=== PATIENT | male | born 1990 | race Two or more races ===

== ENCOUNTER 2019-12-19 00:24 | Emergency (ER) | payer OTHER ==
[~2019-12-19] VITALS: Ht 162.6 cm; Wt 88.0 kg
--- NOTE | 2019-12-19 00:50 | NUR ---
PT AMBULATORY WITH STEADY GAIT. BIBS FOR SI WITH PLAN TO RUN IN TO TRAFFIC, -HI. PLACED IN GOWN, ON MONITOR AND PULSE OX. BELONINGS PLACED IN LOCKER. URINE SAMPLE PROVIDED.
[2019-12-19] MEDS ORDERED: OLANZAPINE 5 MG TABLET PO ONE (01:00)
--- NOTE | 2019-12-19 01:02 | NUR ---
SECURITY CALLED FOR WANDING.
[2019-12-19 01:19] LABS: BASOPHILS % (AUTO) 0.6 % (0.0-2.0); EOSINOPHILS % (AUTO) 0.9 % (0.0-6.0); HEMATOCRIT 43 % (39-51); HEMOGLOBIN 13.6 g/dL (13.5-17.5); LYMPHOCYTES # (AUTO) 1.8 /CMM (0.8-4.8); LYMPHOCYTES % (AUTO) 24.2 % (20.0-44.0); MEAN CORPUSCULAR HGB CONC 32 g/dl (31.0-36.0); MEAN CORPUSCULAR VOLUME 85 fL (80-96); MONOCYTES # (AUTO) 0.4 /CMM (0.1-1.30); MONOCYTES % (AUTO) 5.3 % (2.0-12.0); NEUTROPHILS # (AUTO) 5.2 /CMM (1.8-8.9); PLATELET COUNT (AUTO) 315 /CMM (150-450); RED BLOOD CELL COUNT(AUTO) 5.02 MIL/uL (4.5-6.0); WHITE BLOOD COUNT (AUTO) 7.5 K/uL (4.3-11.0)
--- NOTE | 2019-12-19 01:21 | NUR ---
ARTIST BLACKSMITH AT BEDSIDE FOR LABS
[2019-12-19 01:24] LABS: APPEARANCE,URINE Clear (CLEAR); BILIRUBIN,URINE SMALL (NEGATIVE); BLOOD, URINE Negative Ery/uL (NEGATIVE); COLOR,URINE Yellow (YELLOW); KETONES,URINE Trace (NEGATIVE); LEUKOCYTE ESTERASE ,URINE Negative (NEGATIVE); NITRITE, URINE Negative (NEGATIVE); PH,URINE 5.5 (5.0-8.0); PROTEIN,URINE 100 mg/dl (NEGATIVE); UGLUCOSE Negative (NEGATIVE); UROBILINOGEN,URINE 0.2 EU/dL (0.2)
[2019-12-19 01:29] LABS: CALCIUM, SERUM 8.6 mg/dL (8.5-10.1); CARBON DIOXIDE 23 mmol/L (21-32); CHLORIDE 106 mmol/L (98-107); GLUCOSE 111 mg/dL (74-106); POTASSIUM 3.6 mmol/L (3.5-5.1); SODIUM SERUM 139 mmol/L (136-145); UREA NITROGEN, BLOOD 15 mg/dL (7-18)
[2019-12-19 01:34] LABS: ALANINE AMINOTRANSFERASE 31 U/L (12-78); ALBUMIN 3.6 g/dL (3.4-5.0); ALCOHOL, BLOOD < 3 mg/dL (0-0); ALKALINE PHOSPHATASE 120 U/L (46-116); ASPARTATE AMINOTRANSFERASE 18 U/L (15-37); BILIRUBIN,TOTAL 0.2 mg/dL (0.2-1.0); TOTAL PROTEIN, SERUM 7.3 g/dL (6.4-8.2)
[2019-12-19 01:35] LABS: ACETAMINOPHEN 0 ug/ml (10-30)
[2019-12-19 01:42] LABS: RBC,URINE 0-2 /HPF (0-2)
[2019-12-19 01:43] LABS: BACTERIA,URINE Few /HPF (None Seen); MUCUS,URINE Many /LPF (None Seen); SPERM,URINE Many /HPF (None Seen); SQUAMOUS EPITHELIAL CELL,UR Rare /HPF (None Seen)
[2019-12-19] MEDS ORDERED: OLANZAPINE 5 MG TABLET ONE (01:49)
--- NOTE | 2019-12-19 02:07 | NUR ---
Patient is resting comfortably in bed with eyes closed. Easily aroused. VSS
--- NOTE | 2019-12-19 03:34 | NUR ---
PT STILL C/O SI AT THIS TIME, WITH PLAN TO SLIT WRISTS
--- NOTE | 2019-12-19 05:27 | NUR ---
PER [facility] FROM [facility] INTAKE, NO BEDS AVAILABLE AT THIS TIME
--- NOTE | 2019-12-19 05:55 | NUR ---
PT ASLEEP. PLACED ON MONITOR AND PULSE OX. EASILY AROUSED.
--- NOTE | 2019-12-19 06:40 | NUR ---
PT ACCEPTED TO [facility]. DR. CADENA AND DR. SANCHEZ.
--- NOTE | 2019-12-19 06:40 | NUR ---
Patient is resting comfortably in bed with eyes closed. Easily aroused. VSS
[2019-12-19 06:56] VITALS: BP 117/71
--- NOTE | 2019-12-19 07:12 | NUR ---
CALLED CALL THE CAR REQUESTING S TRANSPORT TO [facility]. AWAITING ETA. #[phone]
--- NOTE | 2019-12-19 08:06 | NUR ---
REPORT TO EMT TX FOR MANUEL
== END 2019-12-19 08:08 ==
LOC: ER 00:31
DX: R45.851 Suicidal ideations (principal)
CPT/HCPCS: 36415; 80048; 80076; 80305; 80307; 80329; 81001; 85025; 87086; 99285; G0480; 81000-TC

== ENCOUNTER 2020-01-14 03:56 | Emergency (ER) | payer OTHER ==
[~2020-01-14] VITALS: Ht 162.6 cm; Wt 88.0 kg
--- NOTE | 2020-01-14 04:08 | NUR ---
FEELING DEPRESSED, DENIES S/I, +H/I "THOUGHTS OF HARMING OTHERS"; PT TO BED 14, COOPERATIVE WITH STAFF. BELONGINGS KEPT IN LOCKER FOR SAFETY, CALLED SECURITY AT THIS TIME FOR WANDING. JOEY ANDREWS NOTED.
--- NOTE | 2020-01-14 04:11 | NUR ---
SEEN BY DR. HAGAN
--- NOTE | 2020-01-14 04:13 | NUR ---
SECURITY AT BEDSIDE FOR WANDING
--- NOTE | 2020-01-14 04:40 | NUR ---
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
--- NOTE | 2020-01-14 04:50 | NUR ---
PT UNABLE TO PROVIDE URINE SAMPLE AT THIS TIME. MD FRANCOIS
[2020-01-14 05:04] LABS: BASOPHILS % (AUTO) 0.7 % (0.0-2.0); HEMATOCRIT 43 % (39-51); HEMOGLOBIN 13.8 g/dL (13.5-17.5); LYMPHOCYTES # (AUTO) 2.1 /CMM (0.8-4.8); MEAN CORPUSCULAR HGB CONC 32 g/dl (31.0-36.0); MEAN CORPUSCULAR VOLUME 84 fL (80-96); MONOCYTES # (AUTO) 0.6 /CMM (0.1-1.30); MONOCYTES % (AUTO) 8.6 % (2.0-12.0); NEUTROPHILS % (AUTO) 57.7 % (43.0-81.0); PLATELET COUNT (AUTO) 251 /CMM (150-450); WHITE BLOOD COUNT (AUTO) 6.9 K/uL (4.3-11.0)
[2020-01-14 05:13] LABS: ALANINE AMINOTRANSFERASE 26 U/L (12-78); ALBUMIN 3.5 g/dL (3.4-5.0); ALKALINE PHOSPHATASE 92 U/L (46-116); ASPARTATE AMINOTRANSFERASE 23 U/L (15-37); BILIRUBIN,DIRECT 0.1 mg/dL (0.0-0.2); BILIRUBIN,TOTAL 0.3 mg/dL (0.2-1.0); CALCIUM, SERUM 8.3 mg/dL (8.5-10.1); CARBON DIOXIDE 26 mmol/L (21-32); CHLORIDE 102 mmol/L (98-107); CREATININE 1.1 mg/dL (0.6-1.3); GLUCOSE 104 mg/dL (74-106); POTASSIUM 3.6 mmol/L (3.5-5.1); SODIUM SERUM 140 mmol/L (136-145); TOTAL PROTEIN, SERUM 7.1 g/dL (6.4-8.2); UREA NITROGEN, BLOOD 14 mg/dL (7-18)
[2020-01-14 05:14] LABS: ACETAMINOPHEN 0 ug/ml (10-30); ALCOHOL, BLOOD < 3 mg/dL (0-0); SALICYLATE 1.4 mg/dL (2.8-20.0)
--- NOTE | 2020-01-14 05:20 | NUR ---
PT IS STILL UNABLE TO PROVIDE URINE SAMPLE
--- NOTE | 2020-01-14 05:20 | NUR ---
PT STILL UNABLE TO GIVE URINE SAMPLE AT THIS TIME. MD FRANCOIS
--- NOTE | 2020-01-14 06:43 | NUR ---
URINE SAMPLE COLLECTED AND SENT TO THE LAB.
[2020-01-14 07:44] LABS: APPEARANCE,URINE CLEAR (CLEAR); BILIRUBIN,URINE NEGATIVE (NEGATIVE); BLOOD, URINE NEGATIVE Ery/uL (NEGATIVE); COLOR,URINE YELLOW (YELLOW); KETONES,URINE NEGATIVE (NEGATIVE); LEUKOCYTE ESTERASE ,URINE NEGATIVE (NEGATIVE); NITRITE, URINE NEGATIVE (NEGATIVE); PROTEIN,URINE NEGATIVE (NEGATIVE); UGLUCOSE NEGATIVE (NEGATIVE)
--- NOTE | 2020-01-14 08:06 | NUR ---
PATIENT IN BED ASLEEP, EASILY AROUSABLE BY VOICE, HOOKED TO MONITOR, SITTER AT BEDSIDE, WILL CONTINUE TO MONITOR ACCORDINGLY
--- NOTE | 2020-01-14 09:12 | NUR ---
BREAKFAST TRAY PROVIDED, TOLERATED PO WELL
--- NOTE | 2020-01-14 10:22 | NUR ---
OMA RN AT BEDSIDE FOR PSYCH EVAL.
--- NOTE | 2020-01-14 13:28 | NUR ---
LUNCH TRAY PROVIDED.
--- NOTE | 2020-01-14 15:32 | NUR ---
PT SLEEPING IN BED. EASILY AROUSABLE. STABLE VITALS. WILL CONTINUE TO MONITOR.
--- NOTE | 2020-01-14 15:50 | NUR ---
[facility]ACESHEET AND CLINIC[facility] FAXED TO [facility].
--- NOTE | 2020-01-14 16:56 | NUR ---
PER [facility] INTAKE. PT WILL BE ADMITTED TO [facility] AFTER 190. REPORT TO [phone] EXT [phone]
--- NOTE | 2020-01-14 17:14 | NUR ---
called [id number] res# [id number] eta [id number]
--- NOTE | 2020-01-14 18:26 | NUR ---
PT SLEEPING IN BED. EASILY AROUSABLE BY VOICE. STABLE VITALS. WILL CONTINUE TO MONITOR.
--- NOTE | 2020-01-14 18:26 | NUR ---
SITTER AT BEDSIDE
--- NOTE | 2020-01-14 19:00 | NUR ---
dinner tray provided, tolerating po well.
--- NOTE | 2020-01-14 19:23 | NUR ---
ATTEMPTED TO CALL FOR REPORT, REQUESTED TO CALL BACK
--- NOTE | 2020-01-14 19:38 | NUR ---
REPORT GIVEN TO CORRIE GRAYSON AT [facility] FOR [facility].
--- NOTE | 2020-01-14 19:40 | NUR ---
REPORT GIVEN TO TRANSPORT TEAM FOR [facility]. AND TRANFERRING RESPONSIBILITIES.
[2020-01-14 20:04] VITALS: BP 134/79
== END 2020-01-14 20:05 | disposition short-term general hospital (02) ==
LOC: ER 04:00
DX: R45.850 Homicidal ideations (principal); F32.9 Major depressive disorder, single episode, unspecified; F41.9 Anxiety disorder, unspecified; F20.9 Schizophrenia, unspecified
CPT/HCPCS: 36415; 80048; 80076; 80305; 80307; 80329; 81001; 85025; 99285; G0480; 81000-TC

== ENCOUNTER 2024-01-26 06:10 | Emergency (ER) | payer MEDICAID ==
[~2024-01-26] VITALS: Ht 167.6 cm; Wt 81.6 kg
[2024-01-26 07:21] LABS: BASOPHILS % (AUTO) 0.4 % (0.0-2.0); EOSINOPHILS # (AUTO) 0.1 K/uL (0.0-0.7); EOSINOPHILS % (AUTO) 1.9 % (0.0-6.0); HEMATOCRIT 41 % (39-51); HEMOGLOBIN 13.5 g/dL (13.5-17.5); LYMPHOCYTES # (AUTO) 1.9 K/uL (0.8-4.8); LYMPHOCYTES % (AUTO) 26.2 % (20.0-44.0); MEAN CORPUSCULAR HEMOGLOBIN 28 PG (26.0-33.0); MEAN CORPUSCULAR HGB CONC 33 g/dl (31.0-36.0); MEAN CORPUSCULAR VOLUME 83 fL (80-96); MONOCYTES # (AUTO) 0.5 K/uL (0.1-1.30); MONOCYTES % (AUTO) 6.9 % (2.0-12.0); NEUTROPHILS # (AUTO) 4.6 K/uL (1.8-8.9); NEUTROPHILS % (AUTO) 64.6 % (43.0-81.0); PLATELET COUNT (AUTO) 308 K/uL (150-450); RED BLOOD CELL COUNT(AUTO) 4.91 MIL/uL (4.5-6.0); RED CELL DISTRIBUTION WIDTH 13.9 % (11.5-15.0); WHITE BLOOD COUNT (AUTO) 7.1 K/uL (4.3-11.0)
[2024-01-26 07:43] LABS: ALANINE AMINOTRANSFERASE 35 U/L (12-78); ALBUMIN 3.4 g/dL (3.4-5.0); ALKALINE PHOSPHATASE 118 U/L (46-116); ASPARTATE AMINOTRANSFERASE 22 U/L (15-37); BILIRUBIN,DIRECT 0.1 mg/dL (0.0-0.2); BILIRUBIN,TOTAL 0.4 mg/dL (0.2-1.0); CALCIUM, SERUM 8.9 mg/dL (8.5-10.1); CARBON DIOXIDE 27 mmol/L (21-32); CHLORIDE 99 mmol/L (98-107); CREATININE 1.1 mg/dL (0.6-1.3); GLUCOSE 100 mg/dL (74-106); SODIUM SERUM 135 mmol/L (136-145); TOTAL PROTEIN, SERUM 7.5 g/dL (6.4-8.2); UREA NITROGEN, BLOOD 10 mg/dL (7-18)
[2024-01-26 07:44] LABS: APPEARANCE,URINE CLEAR (CLEAR); BILIRUBIN,URINE NEGATIVE (NEGATIVE); BLOOD, URINE NEGATIVE Ery/uL (NEGATIVE); COLOR,URINE YELLOW (YELLOW); KETONES,URINE NEGATIVE (NEGATIVE); LEUKOCYTE ESTERASE ,URINE NEGATIVE (NEGATIVE); NITRITE, URINE NEGATIVE (NEGATIVE); PROTEIN,URINE NEGATIVE (NEGATIVE); UGLUCOSE NEGATIVE (NEGATIVE); UROBILINOGEN,URINE 0.2 EU/dL (0.2)
[2024-01-26 07:51] LABS: SALICYLATE 2.5 mg/dL (2.8-20.0)
[2024-01-26 07:52] LABS: ACETAMINOPHEN <10 ug/ml (10-30); ALCOHOL, BLOOD < 3 mg/dL (0-10)
[2024-01-26 08:19] LABS: BARBITURATE, URINE NEGATIVE (NEGATIVE); BENZODIAZEPINE, URINE NEGATIVE (NEGATIVE); COCCAINE, URINE NEGATIVE (NEGATIVE); OPIATE, URINE NEGATIVE (NEGATIVE); PHENCYCLIDINE SCREEN,URINE NEGATIVE (NEGATIVE)
[2024-01-26 08:38] LABS: AMPHETAMINE, URINE POSITIVE (NEGATIVE); CANNABINOID, URINE POSITIVE (NEGATIVE)
[2024-01-26] MEDS ORDERED: POTASSIUM CHLORIDE 20 MEQ TAB.PRT.SR PO ONE (09:25)
[2024-01-26] MEDS: POTASSIUM CHLORIDE 20 MEQ TAB.PRT.SR PO ONE (09:29)
[2024-01-26 12:17] VITALS: BP 121/66; TEMP 98.2; O2SAT 96
== END 2024-01-26 12:18 ==
LOC: ER 06:11
DX: R45.851 Suicidal ideations (principal); F15.10 Other stimulant abuse, uncomplicated; F12.10 Cannabis abuse, uncomplicated; F20.9 Schizophrenia, unspecified; F32.A Depression, unspecified; F17.200 Nicotine dependence, unspecified, uncomplicated; Z59.00 Homelessness unspecified; Z20.822 Contact with and (suspected) exposure to COVID-19
CPT/HCPCS: 99285; 85025; 80048; 80076; 84132; 81003; 36415; 87426; 80143; 80320; 80307; J7030; G0480